=== PATIENT | female | born 1965 | race Hispanic/Latino ===

== ENCOUNTER 2018-01-26 14:55 | Outpatient (CLI) | payer OTHER ==
[2018-01-26 15:44] LABS: Blood Urea Nitrogen 11 mg/dL (7-17)
--- NOTE | 2018-01-27 09:45 | Magnetic Resonance Report ---
MRI BRAIN WITHOUT AND WITH CONTRAST: 01/26/18 16:00:00 CLINICAL: Multiple sclerosis. TECHNIQUE: Axial diffusion, T1, FLAIR, gradient echo T2*, and coronal and axial T2 and sagittal T1 plus coronal and axial postcontrast T1 sequences on a 1.5 Melva magnet. 15.0 cc of Multihance was injected intravenously for the contrast portion of the exam. Consent was obtained prior to the administration of contrast. FINDINGS: Normal ventricles and sulci. No restricted diffusion and no abnormal signal. No mass or enhancing lesion. No hemorrhage, edema or extra-axial collection. Normal pituitary and optic chiasm. The brainstem and cerebellum are normal. Intact vascular flow voids. The orbits, sinuses and soft tissues are normal. Normal calvarium and skull base. IMPRESSION: Normal study.
== END 2018-01-26 14:56 | disposition home or self-care (01) ==
LOC: MRI 14:55
PROVIDERS: ATTEND Psychiatry & Neurology Neurology
DX: G35 Multiple sclerosis (principal)
CPT/HCPCS: 36415; 70553; 82565; 84520; A9577

== ENCOUNTER 2018-02-07 10:21 | Outpatient (CLI) | payer OTHER ==
--- NOTE | 2018-02-07 15:20 | Ultrasound Report ---
ABDOMINAL ULTRASOUND: 02/07/18 10:21:00 CLINICAL: Abdominal pain and elevated liver function tests. FINDINGS: High-resolution ultrasound demonstrates a normal sized liver with normal contour and overall echogenicity. The right lobe measures 15 cm in length. No liver mass. Normal hepatic vasculature and inferior vena cava. Normal gallbladder and bile ducts. The gallbladder wall measures 2.0mm. The common bile duct measures 4.0 mm diameter. The pancreas is well imaged and normal Normal abdominal aorta. A normal spleen measures 8.8cm. Normal size kidneys with normal echogenicity and normal non-dilated renal collecting systems and ureters. The right kidney measures 8.8 x 3.3 x 4.8cm. The left kidney measures 10.2 x 6.9 x 5.1cm. An anterior exophytic cyst in the midportion of the right kidney measures 5.4 x 4.3 x 5.4 cm.No renal mass or calculus. No ascites or mass. IMPRESSION: 1. Normal liver, biliary tract and pancreas. 2. A benign 5.4 cm right renal cyst.
== END 2018-02-07 10:22 | disposition home or self-care (01) ==
LOC: SPVWC 10:21
PROVIDERS: ATTEND Internal Medicine Gastroenterology
DX: N28.1 Cyst of kidney, acquired (principal); K30 Functional dyspepsia; R79.89 Other specified abnormal findings of blood chemistry
CPT/HCPCS: 76700

== ENCOUNTER 2018-02-09 10:59 | Outpatient (CLI) | payer OTHER ==
--- NOTE | 2018-02-10 11:23 | Magnetic Resonance Report ---
MR CERVICAL SPINE WITH AND WITHOUT CONTRAST History: Multiple sclerosis Technique: Multisequence, multiplanar MRI before and after IV gadolinium. Comparison: None. Findings: Anterior fusion hardware from C4-6 generates mild artifact. There appears to be normal height and alignment of the cervical vertebral bodies. No evidence for fracture, subluxation or bone lesion. The cervical spinal cord is normal size and signal intensity throughout. No abnormal intramedullary signal or enhancement following IV gadolinium. At C6-7: There is a moderate diffuse posterior bulging disc and mild bilateral uncovertebral spurring. The facet joints are unremarkable. There is mild central canal narrowing at this level measuring 8.4 mm in AP dimension. Bilateral neural foraminal narrowing is estimated at 50%. The remaining levels are within normal limits. IMPRESSION: Slightly limited study secondary to surgical hardware from C4-6. No abnormal intramedullary signal or enhancement is identified typical of multiple sclerosis. Moderate degenerative disc disease at C6-7 as described.
== END 2018-02-09 11:00 | disposition home or self-care (01) ==
LOC: MRI 10:59
PROVIDERS: ATTEND Psychiatry & Neurology Neurology
DX: G35 Multiple sclerosis (principal); M48.02 Spinal stenosis, cervical region; M50.323 Other cervical disc degeneration at C6-C7 level; M50.223 Other cervical disc displacement at C6-C7 level
CPT/HCPCS: 72156; A9577

== ENCOUNTER 2018-02-12 13:36 | Outpatient (CLI) | payer OTHER ==
--- NOTE | 2018-02-12 15:07 | Magnetic Resonance Report ---
MRI THORACIC SPINE WITH AND WITHOUT CONTRAST INDICATION: Multiple sclerosis. COMPARISON: None similar. FINDINGS: Multiplanar and multisequence MRI of the thoracic spine performed before and after 15 mL MultiHance intravenously demonstrates normal thoracic cord contours and signal without abnormal enhancement. Normal conus medullaris terminating behind L1. Normal vertebral body stature, alignment and marrow signal. Slight diffuse disc bulge at T11-T12. Approximately 4.5 cm exophytic right renal cyst partially imaged. CONCLUSION: No focal suspicious thoracic cord lesions identified with few incidental findings, as above. Thank you for the opportunity to participate in this patient's care.
== END 2018-02-12 13:37 | disposition home or self-care (01) ==
LOC: MRI 13:36
PROVIDERS: ATTEND Psychiatry & Neurology Neurology
DX: G35 Multiple sclerosis (principal); M51.24 Other intervertebral disc displacement, thoracic region; N28.1 Cyst of kidney, acquired
CPT/HCPCS: 72157; A9577

== ENCOUNTER 2018-12-25 09:59 | Outpatient (CLI) | payer OTHER ==
[2018-12-25] MEDS ORDERED: KINEVAC IV ONE ×2 (10:52→10:54)
--- NOTE | 2018-12-25 13:48 | Nuclear Medicine Report ---
HEPATOBILIARY SCAN: History: Right upper quadrant abdominal pain. Following the injection of the radionuclide, serial scanning was obtained over the right upper quadrant. Initial imaging of the liver demonstrates a relatively normal activity pattern. Progressive concentration of the radionuclide in the bile ducts, with filling of both the gallbladder and small bowel, is identified within a normal time period. The gallbladder ejection fraction is within normal limits measuring 67%. The patient reports the same pain and nausea were reproduced during the infusion of CCK. IMPRESSION: Normal biliary system. Symptomatology as described.
== END 2018-12-25 10:00 | disposition home or self-care (01) ==
LOC: NM 09:59
PROVIDERS: ATTEND Family Medicine
DX: R10.11 Right upper quadrant pain (principal)
CPT/HCPCS: 78227; A9537; J2805